=== PATIENT | male | born 1950 | race Caucasian/White ===

== ENCOUNTER 2023-08-17 09:42 | Emergency (ER) | payer MEDICARE, SELFPAY ==
[2023-08-17 09:49] VITALS: BP 156/81; PULSE 62; RESP 20; TEMP 36.6; O2SAT 97; BMI 29.6
--- NOTE | 2023-08-17 10:26 | ED_ITS ---
HPI - General Adult General Chief complaint: Extremity Injury, Upper Stated complaint: UPPER EXTREMITY PAIN Time Seen by Provider: 08/17/23 10:02 Source: patient Mode of arrival: walk-in Limitations: no limitations History of Present Illness HPI narrative: Patient is a 73-year-old male who is presenting to the ER with chief complaint of left upper arm pain/probable left bicep tear. 1144 morning, selina campbell was holding a door for another person that was leaving a restaurant. The springs were bad on the door, the wind caught the door, and patient's arm was quickly hyperextended at the elbow while he was holding the door so it did not hit somebody else. Patient had pain at that time, patient was having pain throughout the day yesterday with some bruising to the left bicep. Patient came in today for evaluation. Patient has tore his right bicep in the past, he saw a orthopedic surgeon approximately 15 years ago in [place]. It was a partial tear at that time, then he had an injury the day before he had a follow-up appointment without a previous surgeon, had another injury, she had a complete tear but never had surgery. Patient has not injured her is left upper arm or left bicep previously. Patient did not fall, no head injury, neck pain, no other acute complaints. All systems are negative except as noted/marked. All systems reviewed and otherwise negative. Nurses note and vital signs reviewed and patient is not hypoxic. General: The patient appears well and in no apparent distress. Patient is resting comfortably on cart. Patient is not toxic, lethargic, or listless Skin: Warm, dry, no pallor noted. There is no rash noted. No petechiae, purpura. Head: Normocephalic, atraumatic Eye: Normal conjunctiva, no drainage, EOMI. PERRL Ears, Nose, Mouth, and Throat: oral mucosa is moist. Nares patent. Mouth without vesicles. Cardiovascular: Regular Rate and Rhythm, no murmur, gallop, rub Respiratory: Patient is in no distress, no accessory muscle use, lungs are clear to auscultation, no wheezing, rales or rhonchi Musculoskeletal: Patient has full range of motion of all of the extremities except to the left upper arm. Patient has ecchymosis bruising and swelling with small Calderon deformity to the distal biceps of his left upper extremity. Patient has full range of motion of his left shoulder, elbow, wrist and hand with no significant pain. Patient has mild pain with flexion extension supination pronation of elbow second or left bicep, but pain is minimal at this time. Otherwise no motor, sensory, or focal neurological deficits Neurological: A&O x4, normal speech Psychiatric: Cooperative Related Data Home Medications Medication Instructions Recorded Confirmed amlodipine 10 mg tablet 10 mg PO DAILY 08/17/23 08/17/23 atorvastatin 10 mg tablet 10 mg PO DAILY 08/17/23 08/17/23 bisoprolol fumarate 10 mg tablet 20 mg PO DAILY 08/17/23 08/17/23 dorzolamide 22.3 mg-timolol 6.8 1 drp ophthalmic (eye) Q12H 08/17/23 08/17/23 mg/mL eye drops latanoprost 0.005 % eye drops 1 drp ophthalmic (eye) DAILY 08/17/23 08/17/23 Previous Rx's Medication Instructions Recorded hydrocodone 5 mg-acetaminophen 325 1 tab PO Q4H PRN pain #10 tabs 08/17/23 mg tablet Allergies Allergy/AdvReac Type Severity Reaction Status Date / Time morphine AdvReac Severe Vomiting Verified 08/17/23 09:52 PFSH PFSH Social History Smoking status: Never smoker Exam Constitutional Vital Signs, click to edit/add: Last Vital Signs Temp 97.9 F 08/17/23 09:49 Pulse 62 08/17/23 09:49 Resp 20 08/17/23 09:49 BP 156/81 H 08/17/23 09:49 Pulse Ox 97 08/17/23 09:49 O2 Del Method Room Air 08/17/23 09:49 Course Vital Signs Vital signs: Vital Signs Temperature 97.9 F 08/17/23 09:49 Pulse Rate 62 08/17/23 09:49 Respiratory Rate 20 08/17/23 09:49 Blood Pressure 156/81 H 08/17/23 09:49 Pulse Oximetry 97 08/17/23 09:49 Oxygen Delivery Method Room Air 08/17/23 09:49 Temperature 97.9 F 08/17/23 09:49 Pulse Rate 62 08/17/23 09:49 Respiratory Rate 20 08/17/23 09:49 Blood Pressure 156/81 H 08/17/23 09:49 Pulse Oximetry 97 03/15/24 09:49 Oxygen Delivery Method Room Air 08/17/23 09:49 Medical Decision Making MDM Narrative Medical decision making narrative: Patient was placed in a left arm sling. Splint was assisted with . the patient was neurovascularly intact before and after the splint was placed. the affected bones/injured area had proper alignment in a splint. Education on splint care at home was given at bedside. Patient and family have no questions at discharge. Patient will use ice, alternate Tylenol Motrin as needed. Patient was given a short prescription of Johnston if needed. Patient has an appointment at 9:30 in the morning on Sunday with Dr. Olivas. Dr Olivas is aware. Discharge Plan Discharge Stand Alone Forms: Portal Instructions Chief Complaint: Extremity Injury, Upper Clinical Impression: Tear of left biceps muscle Patient Disposition: Home, Self-Care Time of Disposition Decision: 10:24 Condition: Fair Prescriptions / Home Meds: New hydrocodone-acetaminophen 5-325 mg tablet 1 tab PO Q4H PRN (Reason: pain) Qty: 10 0RF No Action amlodipine 10 mg tablet 10 mg PO DAILY atorvastatin 10 mg tablet 10 mg PO DAILY latanoprost 0.005 % drops 1 drp OPHTHALMIC (EYE) DAILY dorzolamide-timolol 22.3-6.8 mg/mL drops 1 drp OPHTHALMIC (EYE) Q12H bisoprolol fumarate 10 mg tablet 20 mg PO DAILY Instructions: How to Use a Sling (ED), Repairs of the Biceps and Triceps Tendons (DC), Tendon Rupture (ED) Additional Instructions: Use sling as needed, take it off for ice and shower. Use ice 20 minutes on, 20 minutes off. Do not use heat. Use pain medication as needed, you will see Dr. Olivas at 9:30 in the morning on August 19 at the specialty clinic at [facility]. You may alternate Tylenol and Motrin every 4 hours as needed for pain, substitute Johnston for Tylenol if needed for severe pain. Do not take Johnston and Tylenol together, you could accidentally take too much Tylenol together. Referrals: STACI NEVAREZ [Primary Care Provider] - 1 week [place] Olivas MD [Physician] - 1 week
== END 2023-08-17 10:34 | disposition home or self-care (01) ==
PROVIDERS: Emergency Provider Emergency Medicine; PCP Family Medicine
DX: S46.212A Strain of muscle, fascia and tendon of other parts of biceps, left arm, initial encounter (principal); X50.9XXA Other and unspecified overexertion or strenuous movements or postures, initial encounter; Z79.899 Other long term (current) drug therapy
CPT/HCPCS: 99283